=== PATIENT | female | born 2000 | race Caucasian/White ===

== ENCOUNTER 2022-09-23 00:18 | Emergency (ER) | payer OTHER, SELFPAY ==
[2022-09-23 00:24] VITALS: BP 158/63; PULSE 97; RESP 16; TEMP 36.1; O2SAT 98; BMI 34.7
--- NOTE | 2022-09-23 01:03 | EDS_ITS ---
HPI History of Present Illness Chief Complaint: Back Narrative Narrative: Patient is a 21-year-old female that states that she has remote history of back issues from when she was younger that required physical therapy. She states now that she is off it because she does not do physical therapy as often. She reports last week she was showing her friend a bridge and after doing so felt pain in her low back region. She states she went to an urgent care where she was informed she has sciatica and was placed on muscle relaxers and steroids. Patient denies any loss of bowel or bladder control or history of IV drug use. She states that she was laying down for a few hours today and when she went to stand up had increased pain and for a few seconds folic it was difficult to stand and she also states that during this time there was apparent tingling or numbness in her legs. She states the symptoms improved quickly but these were red flags that she was advised to watch out for by urgent care and therefore comes in for evaluation. She states has been no repeat trauma or excessive activity since the initial onset of pain [facility] Medical History (Updated 09/23/22 @ 05:[address] Luis Antonio Patel, ) ADHD Back pain Home Medications cyclobenzaprine 10 mg tablet 10 mg PO TID PRN Pain 09/23/22 [History Last Taken Unknown] hydrocodone-acetaminophen 5-325mg 5mg-325mg 1 tab PO Q6H PRN PRN Pain 3 days #12 TABLETS 09/23/22 [Rx Last Taken Unknown] methylphenidate HCl 27 mg tablet,extended release 24 hr (Concerta) 27 mg PO DAILY 09/23/22 [History Last Taken Unknown] prednisone 10 mg tablets in a dose pack See Taper PO DAILY 09/23/22 [History Last Taken Unknown] Allergy/AdvReac Type Severity Reaction Status Date / Time No Known Allergies Allergy Verified 09/23/22 00:25 Social History Smoking Status: Never smoker [facility] ED Constitutional Constitutional ED: Denies chills or fever(s) ENT ENT ED: Denies sore throat Cardiovascular Cardiovascular: Denies chest pain Respiratory/Chest Respiratory/Chest: Denies cough or dyspnea Gastrointestinal Gastrointestinal: Denies abdominal pain, diarrhea, nausea or vomiting Genitourinary Genitourinary ED: Denies dysuria, hematuria or urinary frequency Musculoskeletal Musculoskeletal: Reports back pain Integumentary Denies rash Neurologic Neurologic: Reports paresthesias; Denies headache(s) or weakness Hematologic/Lymphatic Hematologic/Lymphatic: Denies easy bleeding or easy bruising EXAM Physical Exam Const Vital Signs: 09/23/22 00:24 Temperature 97 F L Temperature Source Temporal Pulse Rate 97 Respiratory Rate 16 Blood Pressure 158/63 H Blood Pressure Mean 94 Pulse Ox 98 Oxygen Delivery Method Room Air Positive well nourished and well developed General Appearance ED: well developed Eyes PERRL and EOMs intact bilaterally Neck supple Resp normal respiratory effort and clear to auscultation bilaterally Cardio regular rate and regular rhythm Back/Spine Back/Spine Narrative: No bony deformity or step-off of the thoracic or lumbar spine no midline pain with palpation. There is mild tension and spasm noted of the right piriformis and psoas muscle belly region that worsens with extension rotation and hip flexion. No saddle anesthesia. Negative straight leg raise. No clonus or Babinski. Patellar reflexes are plus 3 out of 4 bilaterally. Positive Iraj sign on right. Extremity normal to inspection Extremity Narrative: No asymmetric edema no pitting edema negative Homans' sign bilaterally Neuro oriented x3 and CN's II-XII intact bilaterally Sensorium / Orientation: alert Psych mental status grossly normal Skin no rashes or lesions noted Skin Narrative: No overlying soft tissue changes to suggest trauma or infection MDM MDM MDM Narrative Medical decision making narrative: Patient presented to the ER without physical exam or HPI findings concerning for cauda equina or epidural abscess. There also was no report or signs of trauma and the pain was paralumbar not midline and therefore I felt no need for imaging studies. At this time patient reports paresthesias that were short-lived after laying down for a few hours and she has no signs of neurovascular compromise on exam. Therefore I feel that her symptoms are related to muscular tension and spasm leading to superficial nerve compression which is since resolved with her home medication and motion. I discussed with patient these findings and she feels comfortable not undergoing any imaging studies as her exam at this time does not point any type of neuro claudication symptoms or concerns for cauda equina or epidural abscess. Patient agrees to continue the medication prescribed by urgent care but pain medication will be added for a few days to help with any worsening symptoms. However as concern for underlying infectious process trauma or neurologic impingement is low she is otherwise safe for discharge Discharge Plan Triage Chief Complaint: Back ED Provider: Luis Antonio Patel Dx/Rx/DC Orders Clinical Impression: Acute lumbosacral myofascial strain, Piriformis syndrome of right side Instructions: ED Back Spasm, No Trauma, ED Back Sprain/Strain Prescriptions: New hydrocodone-acetaminophen 5-325 mg tablet 1 tab PO Q6H PRN PRN (Reason: Pain) 3 Days Qty: 12 0RF No Action cyclobenzaprine 10 mg Tablet 10 mg PO TID PRN (Reason: Pain) prednisone 10 mg Tablets,Dose Pack See Taper PO DAILY Taper: Prednisone Taper 60 mg WITH BREAKFAST for 3 Days and 0 Hour 50 mg WITH BREAKFAST for 3 Days and 0 Hour 40 mg WITH BREAKFAST for 3 Days and 0 Hour 30 mg WITH BREAKFAST for 3 Days and 0 Hour 20 mg WITH BREAKFAST for 3 Days and 0 Hour 10 mg WITH BREAKFAST for 3 Days and 0 Hour methylphenidate HCl [Concerta] 27 mg Tablet Extended Release 24hr 27 mg PO DAILY Primary Care Provider: Care Physician,No Primary Referrals: Care Physician,No Primary [Primary Care Provider] - Activity Restrictions/Additional Instructions: Please follow-up with your orthopedic physician as previously directed. Continue to stretch and heat your low back to help reduce pain and speed healing. Based on your physical exam history I feel you have spasm and irritation to your piriformis and psoas muscles which is causing superficial nerve compression. Continue the medication prescribed by the urgent care and return to the ER should you have any further concerns Disposition Disposition: Home, Self Care Discharge Date/Time: 09/23/22 01:43
[2022-09-23] MEDS: Ketorolac 30 MG/ML Syringe IM (01:30)
== END 2022-09-23 01:43 | disposition home or self-care (01) ==
PROVIDERS: Emergency Provider Emergency Medicine; Visit Provider Emergency Medicine
DX: S39.012A Strain of muscle, fascia and tendon of lower back, initial encounter (principal); G57.01 Lesion of sciatic nerve, right lower limb; Z79.52 Long term (current) use of systemic steroids; X58.XXXA Exposure to other specified factors, initial encounter
CPT/HCPCS: 96374; 99282

== ENCOUNTER 2022-12-19 10:00 | Outpatient (RCR) | payer OTHER, SELFPAY ==
--- NOTE | 2022-11-12 10:19 | HP.PTEVAL ---
Patient's Visit Information BERNARD COLEMAN is a 22 year old F referred to Physical Therapy by Dr. Bradley Vila DO with a diagnosis of LUMBARLBP, R RADICULOPATHY, SPINAL STENOSIS AND SCOLIOSIS. Date of Evaluation: 11/12/22 Physical Therapist: Charmaine Petit, PT, Cert MDT - Visit Plan Frequency: 2-3x /Week Duration: 4-6 Weeks Plan: CHECK R LOW BACK LIGHT TOUCH SENSATION BEFORE DOING E-STIM OR US. CONSIDER MODALITIES. POSTURE CORRECTION/STRENGTHENING, INSTRUCTION IN APPROPRIATE BODY MECHANICS AND ACTIVITY MODIFICATIONS. DLS STARTING WITH A NEUTRAL SPINE X 4-6 WKS THEN PROGRESSING ROM TOLERATED. MARRY LE ROM, STRETCHING AND STRENGTHENING. HEP INSTRUCTION. - Subjective Work/Leisure: STUDENT AT THE [employer]. 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 NO OTHER JOBS. Disability: NO. Present symptoms: R LOW BACK PAIN. RIGHT THIGH PAIN AND NUMBNESS. LAST SATURDAY HAD NUMBNESS AND SOME TINGLING INTO LEG AND FOOT AT SECOND PT VISIT IN [place]. INTERMITTENT PAIN, NUMBNESS AND TINGLING DOWN ENTIRE RIGHT LEG INTO FOOT PRIOR TO FIRST PT RAIN'T ABOUT 11/02/22. PATIENT REPORTS EVEN GETTING SOME TINGLING INTO R NECK AND ARM PRIOR TO THAT FIRST PT RAIN'T. FIRST PT RAIN'T ABOLISHED SCIATICA AND SECOND ONE IT CAME BACK. NO LONGER HAVING PELVIC AREA TINGLING BUT DID HAVE IT ABOUT A MONTH AGO AND WENT TO ED. Present since: END 2019. Pain Scale: WORST 5/10, LEAST 1-2/10. Currently: 10/26. Is it getting better, worse or staying the same: STAYING THE SAME. Commenced as a result of: 4 AM IMPULSIVELY DECICED TO SEE IF I COULD LIFT 50 LBS (25#'S IN EACH HAND) OVER-HEAD AND THAT IS HOW I HURT MY BACK. Symptoms at onset: A DAY OR TWO LATER HAD SEVERE LOW BACK PAIN. Worse: STANDING, COOKING, PROLONGED WALKING (MORE THAN 30 MIN), SOMETIMES SITTING - IF PROLONGED, BENDING, LIFTING AND TWISITNG - ESPECIALLY TWISTING TO THE RIGHT. R BACK MASSAGE, WALKING BACKWARDS. Better: LYING DOWN WITH KNEES UP, PAIN MEDICATION - IBUPROFEN, MASSAGE AND STRETCHING OF LEFT MID AND LOW BACK, R SKTC, LTR TO THE RIGHT. Disturbed sleep: NO. Previous history/Previous treatment: NO HX OF BACK PAIN OR SCIATICA PRIOR TO 2019 WHEN LIFTED WEIGHT OVER-HEAD. Treatment this episode: PHYSICAL THERAPY IN [place] WHEN FIRST GOT HURT X APPROX 1 MONTHS. PAIN DID NOT GO AWAY BUT BECAME MUCH BETTER AND VERY MANAGABLE (DX WAS STRAIN OF MULTIFIDUS). ABOUT A YEAR LATER PAIN GOT BAD AGAIN FOR NO APPARENT REASON OTHER THAN STOPPED EXERCISING AND GAINED WEIGHT. SELF TREATED UNTIL SCIATICA STARTED LAST MONTHS. THEN WENT URGENT CARE, THEN ED, THEN DR. VILA. DR. VILA REFERRED TO PT AND HAD TWO VISITS IN [place] AND DID MRI. Coughing/sneezing/straining: NEGATIVE. Gait: LONG DISTANCE LIMITED DUE TO LBP, R HIP PAIN AND SCIATICA. Bowel or Bladder Dysfunction: NO. Accidents: NO. Unexplained weight loss: NO. Imaging: LUMBAR MRI 10/05/[address] [facility] BY DR. VILA: L3-4 TRACE DISC BULGE, ASYMMETRIC TO R SUBLTY IMPINGES UPON R L4 NERVE ROOT AND MILD R LATERAL RECESS NARROWING. L4-5 SHALLOW CENTRAL DISC PROTRUSION AND TRACE RETROLISTHESIS; DISC ANNULAR FISSURE AND NO CENTRAL CANAL STENOSIS. SLIGHT LATERAL CURVE CONVEX R. MODERATE TO ACCENTUATED LORDOSIS. PMH/Recent major surgery: L PLANTER FASCITIS. ADHD. OTHER: I FEEL LIKE THE MUSCLES OF MY R BACK HAVE ATROPHIED. NECK AND R SHLD PAIN AT TIMES - USUALLY WHEN BACK IS FLARED UP. PATIENT REPORTS DR. VILA ALSO DISCUSSED PRESCRIPTION MEDICATION AND PAIN MGMT/INJECTIONS POSSIBLE TREATMENTS. PATIENT REPORTS SHE CHOSE TO TRY THERAPY FIRST. - Objective Sitting/Standing Posture: POOR. FH. RSH'S. SLOUCHED IN SITTING AND INCREASED LORDOSIS IN STANDING. NO GROSS DEVIATION IN ILIAC CREST OR SHLD LEVLES. NO RLEVANT LATERAL SHIFT. Other Observations: INDEP GAIT AND TRANSFERS WITH NO GROSS DEVIATIONS NOTED. Sensory deficit: DECREASED LIGHT TOUCH SENSATION OF R LUMBAR REGION COMPARED TO LEFT. ROM deficit: MARRY LE'S WFL. Motor deficit: L LE 5/5 EXCEPT HIP 4/5. R LE: HIP 4-/5, KNEE 5/5, ANKLE 5/5. PATIENT ABLE TO HEEL WALK AND TOE WALK WITHOUT UE ASSIST. Reflexes: UNABLE TO ELICIT MARRY LE DTR'S. Dural Signs: POSITIVE R LE. Lumbar mvmt loss: flex - MOD - INCREASES CENTRAL AND R LBP. ext - MIN. R SG - MIN. L SG - MIN - INCREASES R LBP. Core strength: POOR. Palpation: TENDERNESS WITH PALPATION OF PROXIMAL RIGHT LATERAL THIGH AND GENTLE PALPATION OF L45S1 REGION PRODUCES R HIP PAIN. TENDERNESS WITH PALPATION OF LOWER THORACIC SPINE AND PALPATION OF LOWER THORACIC SPINE CAUSES C/O RIGHT LOW BACK PAIN. DECREASED PARASPINAL MUSCLE BULK R COMPARED TO LEFT. TREATMENT: NEUROMUSCULAR REEDUCATION - INTRO TO RETRAINING OF MVMT AND POSTURE FOR SITTING, LYING AND STANDING ACTIVITIES. REINFORCEMENT NEEDED. - Balance/Special Test Scores Oswestry Low Back Score: 15 - Goals Goal 1:: DECREASE C/O MID BACK, LOW BACK AND RIGHT LE SX'S. Goal Time Frame: 4-6 Weeks Goal 2:: IMPROVE PERSONAL CARE, LIFTING, WALKING, SITTING, STANDING, SLEEP, SOCIAL LIFE, TRAVEL AND WORK/HOMEMAKING FUNCTION Goal Time Frame: 4-6 Weeks Goal 3:: INSTRUCT IN PROPHYLAXIS Goal Time Frame: 4-6 Weeks - Anticipated Interventions Patient/Client Instruction: Educate patient on: Condition, Plan of Care, Risk Factors For the Purpose of:: To improve self management Therapeutic Exercise to Include: Strength training, Body mechanics, Postural training, Neuromotor development, In an aquatic setting, Dynamic Lumbar Stabilization Comment: CONSIDER AQUATICS IF NOT PROGESSING ON LAND For the Purpose of:: To decrease pain, To improve muscle performance and motor function, To increase tolerance to activity/condition/position, To improve ability of physical actions for home/community/work/leisure TENS: Yes IF ES: Yes Cryotherapy (ice pack, ice massage): Yes Thermo therapy (hot pack): Yes Ultrasound (thermal/non thermal): Yes For the Purpose of:: To decrease pain, To improve nutrient delivery to tissue Thank you for the opportunity to evaluate your patient. For Medicare and Medicare HMO plans, please review the plan of care and approve it. It will need to be FAXED BACK to us at [phone] for Medicare purposes. For Medicare only, by signing this I certify the plan of care. Please let me know if there are questions or concerns regarding this plan of care. Physician Signature: Date:
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
== END 2022-12-19 19:00 | disposition home or self-care (01) ==
LOC: PT 10:00
PROVIDERS: Referring Provider Orthopaedic Surgery; Visit Provider Orthopaedic Surgery
DX: M41.86 Other forms of scoliosis, lumbar region (principal)
CPT/HCPCS: 97035; 97112; 97162; 97164; 97530